=== PATIENT | male | born 1990 | race Caucasian/White ===

== ENCOUNTER 2017-12-14 15:09 | Inpatient (IN) | payer OTHER ==
[~2017-12-14] VITALS: Ht 172.7 cm; Wt 82.7 kg
[2017-12-14] MEDS: MORPHINE SULFATE 2 MG/ML INJ IV PUSH PRN ×5 (10:58→22:58)
[2017-12-14] MEDS: ACETAMINOPHEN 1000 MG/100 ML 100 ML IV SCH ×2 (11:00→17:11)
[2017-12-14] MEDS ORDERED: HYDROmorphone HCL PF 2 MG/ML VIAL ONE (15:17)
[2017-12-14 15:23] VITALS: O2SAT 100
[2017-12-14 15:34] LABS: BASOPHIL # 0.1 TH/MM3 (0-0.2); BASOPHIL % 0.4 % (0.0-2.0); EOSINOPHIL # 0.2 TH/MM3 (0-0.4); EOSINOPHIL % 1.2 % (0.0-4.0); HEMATOCRIT 43.2 % (39.0-51.0); HEMOGLOBIN 14.8 GM/DL (13.0-17.0); LYMPH % 27.9 % (9.0-44.0); LYMPHOCYTE # 5.5 TH/MM3 (1.0-4.8); MEAN CELL VOLUME 84.2 FL (80.0-100.0); MEAN CORPUSCULAR HEMOGLOBIN 28.8 PG (27.0-34.0); MEAN CORPUSCULAR HGB CONC 34.2 % (32.0-36.0); MEAN PLATELET VOLUME 8.5 FL (7.0-11.0); MONO % 4.8 % (0.0-8.0); NEUT % 65.7 % (16.0-70.0); PLATELET COUNT 306 TH/MM3 (150-450); RED BLOOD COUNT 5.12 MIL/MM3 (4.50-5.90); RED CELL DISTRIBUTION WIDTH 13.1 % (11.6-17.2); WHITE BLOOD COUNT 19.8 TH/MM3 (4.0-11.0)
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
[2017-12-14 15:45] LABS: PROTHROMBIN TIME - PATIENT 10.6 SEC (9.8-11.6)
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
[2017-12-14] MEDS ORDERED: IOHEXOL 350 MG/ML 10 ML VIAL (for RAD DIAG) IVCONTRAST ONE (15:47)
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
[2017-12-14] MEDS: SODIUM CHLOR 0.9% 1000 ML INJ 1,000 ML IV SCH (15:58)
[2017-12-14 16:00] VITALS: BP 143/65; PULSE 92; RESP 18; O2SAT 100
[2017-12-14] MEDS ORDERED: SODIUM CHLORIDE 0.9% FLUSH 10 ML FLUSH IV FLUSH PRN (16:00)
[2017-12-14] MEDS ORDERED: ONDANSETRON HCL 4 MG/2 ML VIAL IV PUSH PRN (16:00)
[2017-12-14] MEDS ORDERED: ENALAPRILAT 1.25 MG/ML VIAL IV PUSH PRN (16:00)
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
[2017-12-14 16:33] LABS: BANDS 2 % (0-6); LYMPHOCYTES 23 % (9-44); MONOCYTES 6 % (0-8); MYELOCYTES 1 % (0-0); NEUTROPHIL # MANUAL DIFF 13.7 TH/MM3 (1.8-7.7); POLYS (SEG NEUTROPHILS) 66 % (16-70)
[2017-12-14 16:45] VITALS: BP 123/76; PULSE 87; RESP 17; TEMP 95.3; O2SAT 96
[2017-12-14] MEDS ORDERED: BACITRACIN TOP OINT 15 GM TUBE ONE (18:00)
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
[2017-12-14] MEDS: FAMOTIDINE 20 MG TAB PO SCH (19:58)
[2017-12-14] MEDS: MAGNESIUM HYDROXIDE SUSP 30 ML CUP PO SCH (19:58)
[2017-12-14] MEDS: DOCUSATE SODIUM 100 MG CAP PO SCH (19:58)
[2017-12-14 20:00] VITALS: BP 125/64; PULSE 84; RESP 16; TEMP 95.7; O2SAT 98
[2017-12-15] MEDS: MORPHINE SULFATE 2 MG/ML INJ IV PUSH PRN ×5 (01:15→20:49)
[2017-12-15] MEDS: SODIUM CHLOR 0.9% 1000 ML INJ 1,000 ML IV SCH ×3 (01:58→20:53)
[2017-12-15 03:56] LABS: AUTOMATED NEUTROPHIL # 7.4 TH/MM3 (1.8-7.7); BASOPHIL % 0.2 % (0.0-2.0); EOSINOPHIL % 0.2 % (0.0-4.0); HEMATOCRIT 37.9 % (39.0-51.0); HEMOGLOBIN 13.4 GM/DL (13.0-17.0); LYMPH % 17.6 % (9.0-44.0); LYMPHOCYTE # 1.8 TH/MM3 (1.0-4.8); MEAN CELL VOLUME 84.2 FL (80.0-100.0); MEAN CORPUSCULAR HEMOGLOBIN 29.7 PG (27.0-34.0); MEAN CORPUSCULAR HGB CONC 35.3 % (32.0-36.0); MEAN PLATELET VOLUME 8.1 FL (7.0-11.0); MONO % 8.4 % (0.0-8.0); MONOCYTE # 0.8 TH/MM3 (0-0.9); NEUT % 73.6 % (16.0-70.0); PLATELET COUNT 218 TH/MM3 (150-450); RED CELL DISTRIBUTION WIDTH 12.8 % (11.6-17.2); WHITE BLOOD COUNT 10.1 TH/MM3 (4.0-11.0)
[2017-12-15 04:12] LABS: BICARBONATE 25.3 MEQ/L (21.0-32.0); CALCIUM 8.4 MG/DL (8.5-10.1); CREATININE 0.86 MG/DL (0.60-1.30)
[2017-12-15] MEDS ORDERED: LACTATED RINGER'S 1000 ML IV PRN (05:30)
[2017-12-15] MEDS ORDERED: SODIUM CHLORID 0.9% 500 ML IV PRN (05:30)
[2017-12-15] MEDS ORDERED: CHLORHEXIDINE GLUCONATE 2 % 1 PACK (2 CLOTHS) TOPICAL PRN (05:30)
[2017-12-15] MEDS ORDERED: METOPROLOL TARTRATE 25 MG TAB PO PRN (05:30)
[2017-12-15] MEDS ORDERED: POVIDONE IODINE 5% (ANTISEPSIS KIT) 4 APPLICATIONS EACH NARE PRN (05:30)
[2017-12-15] MEDS: ACETAMINOPHEN 1000 MG/100 ML 100 ML IV SCH ×2 (06:55→11:00)
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
[2017-12-15 08:00] VITALS: BP 128/92; PULSE 72; RESP 16; TEMP 97.3; O2SAT 100
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
[2017-12-15] MEDS ORDERED: GENTAMICIN SULFATE 80 MG/2 ML VIAL ONE ×2 (08:40→08:48)
[2017-12-15] MEDS ORDERED: VANCOMYCIN HCL 1000 MG VIAL ONE (08:40)
--- NOTE | 2017-12-15 08:50 | RADRPT ---
EXAM DATE/TIME: 12/15/2017 07:01 [facility] COMPARISON: CHEST SINGLE AP, December 14, 2017, 15:10. INDICATIONS : Shortness of breath. MEDICAL HISTORY : None. SURGICAL HISTORY : None. ENCOUNTER: Subsequent ACUITY: 1 day PAIN SCORE: 0/10 LOCATION: Bilateral chest FINDINGS: A single view of the chest demonstrates the lungs to be symmetrically aerated without evidence of mas s, infiltrate or effusion. The cardiomediastinal contours are unremarkable. Osseous structures are intact. CONCLUSION: Normal examination. Lavon Fitch Jr., MD on December 15, 2017 at 8:47 Board Certified Radiologist. This report was verified electronically.
[2017-12-15] MEDS ORDERED: fentaNYL CITRATE 250 MCG/5 ML AMP ONE (08:57)
[2017-12-15] MEDS: FAMOTIDINE 20 MG TAB PO SCH ×2 (09:00→20:53)
[2017-12-15] MEDS: DOCUSATE SODIUM 100 MG CAP PO SCH ×2 (09:00→20:53)
[2017-12-15] MEDS: MAGNESIUM HYDROXIDE SUSP 30 ML CUP PO SCH ×2 (09:00→20:53)
[2017-12-15] MEDS ORDERED: ceFAZolin INJ 1,000 MG VIAL IV ONE ×2 (10:03→12:00)
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
--- NOTE | 2017-12-15 11:06 | PD.OP ---
cc: Kedar Walters MD Operative Report Date of Surgery: Dec 15, 2017 Preoperative Diagnosis: Displaced right radius and ulna shaft fractures, distal radial ulnar joint dislocation Postoperative Diagnosis: Procedure: Open reduction internal fixation right radius, open reduction and fixation right ulna, open reduction of distal radial ulnar joint, pinning of right distal radial ulnar joint Surgeon: Kedar Walters Co Founder & Ceo(s): NATE Lund PA-C The surgical procedure was assisted by my physician emergency medicine physician assistant. My P.A. presence was necessary throughout this case for the manipulation and positioning of the surgical extremity. My P.A. was assisting me throughout the duration of this procedure. The skill set of a physician emergency medicine physician assistant was medically necessary to complete this procedure. During the surgical case the surgical scheduler was working at the back table and the physician emergency medicine physician assistant was directly assisting me. Operation and Findings: Patient was seen and examined preoperatively. Patient was found to have displaced right radius and ulna shaft fractures with dislocation of distal radial ulnar joint. Informed consent was obtained and operative site was marked. Patient was brought to operating room and given IV sedation and general anesthesia. Timeout procedure was performed. Operative extremity was prepped and draped with alcohol followed by Hibiclens and draped in usual sterile fashion. IV antibiotics were administered prior to incision. Procedure began with a 5 inch incision over the subcutaneous border of the ulna. Fascia was elevated off of the bone. Fracture site was visualized. Fracture tenaculums were used to reduce fracture. There was comminution of the fracture. Fracture was carefully reduced Fracture keyed into anatomic alignment. A Synthes plate was placed across the fracture. Plate was provisionally held to bone with K wires. 3.5 cortical screws were used to compress plate to bone. Multiple screws were placed in each side of fracture. K wires were removed. Fluoroscopy confirmed excellent alignment of fracture with well-placed hardware. Incision was now closed with #1 Vicryl, 3-0 Vicryl, and bao. Next attention was turned to the radius. A 5 inch incision was made over the volar aspect of the forearm. A standard volar approach was utilized. The interval between the radial artery and superficial radial nerve was identified. Neurovascular structures were protected. Soft tissue was elevated off the bone. Fracture site was visualized. Fracture fragments were carefully reduced. Each fracture fragment keyed in anatomic alignment. K wires were used to hold provisional fixation. A Synthes plate was contoured to fit the radius. Plate was provisionally held with K wires. 3.5 cortical screws were used to compress plate to bone. Multiple screws were placed in each side of fracture. K wires were removed. At this point the distal radial joint was visualized. The joint was still dislocated. Attempt was made at closed reduction. DRUJ was not reducible. A 3 inch incision was made over the dorsal aspect of the distal radioulnar joint. The distal ulna was visualized. Soft tissue was removed from the distal radial ulnar joint. Once soft tissue was removed the distal radial joint was reducible. The joint was visualized under fluoroscopy and was stable in supination but not in pronation. The wrist was now fully supinated. A Steinmann pin was now placed through the ulnar aspect of the ulna into the radius to stabilize the joint. Final fluoroscopy revealed excellent of fractures and distal radioulnar joint with well-placed hardware. Sterile dressings were applied with Xeroform, 4 x 4, soft roll, long arm splint, and Patel wrap. Patient was awakened and transferred to recovery room in stable condition. Forearm compartments were soft and compressible. Kedar Walters MD Dec 15, 2017 11:06
[2017-12-15] MEDS ORDERED: DO NOT ADM ANY ANTICOAGULANT DRUGS PRN (11:45)
[2017-12-15] MEDS ORDERED: LIDOCAINE HCL 1% PF 5 ML SYRINGE OTHER ONE (12:00)
[2017-12-15] MEDS ORDERED: LACTATED RINGER'S 1000 ML INJ 1,000 ML IV ONE (12:00)
[2017-12-15] MEDS ORDERED: ROCURONIUM INJ 50 MG/5 ML SYRINGE IV PUSH ONE (12:00)
[2017-12-15] MEDS ORDERED: PHENYLEPH/NS 1000 MCG/10 ML SYR IV ONE (12:00)
[2017-12-15] MEDS ORDERED: PROPOFOL 200 MG/20 ML AMP IV ONE (12:00)
[2017-12-15] MEDS ORDERED: ONDANSETRON HCL 4 MG/2 ML VIAL IV ONE (12:00)
[2017-12-15] MEDS ORDERED: DEXAMETHASONE SOD PHOS 4 MG/ML VIAL IV ONE (12:00)
[2017-12-15] MEDS ORDERED: ePHEDrine/NS 25 MG/5 ML SYRINGE IV ONE (12:00)
[2017-12-15] MEDS ORDERED: NEOSTIGMINE 5 MG/5 ML SYRINGE IV PUSH ONE (12:00)
[2017-12-15] MEDS ORDERED: KETOROLAC TROMETHAMINE 30 MG/ML (IVP) VIAL IV PUSH ONE (12:00)
[2017-12-15] MEDS ORDERED: GLYCOPYRROLATE 1 MG/5 ML SYRINGE IV PUSH ONE (12:00)
--- NOTE | 2017-12-15 12:53 | RADRPT ---
EXAM DATE/TIME: 12/15/2017 09:28 [facility] COMPARISON: FOREARM RIGHT (1VW), December 14, 2017, 15:10. INDICATIONS : Right forearm open reduction internal fixation. MEDICAL HISTORY : None. SURGICAL HISTORY : None. ENCOUNTER: Initial ACUITY: 1 day PAIN SCORE: Non-responsive. LOCATION: Right forearm FINDINGS: Plate and screw fixation of comminuted radial and ulnar fractures with pinning of the radioulnar join t. Hardware appears well-positioned and intact. There is grossly anatomic alignment. Redemonstration of comminuted proximal fifth metacarpal fracture and ulnar styloid fractures. Remainder of the exam i s unchanged. CONCLUSION: 1. Status post right forearm ORIF, as above. Conrad Quintanilla MD on December 15, 2017 at 12:44 Board Certified Radiologist. This report was verified electronically.
--- NOTE | 2017-12-15 13:02 | RADRPT ---
EXAM DATE/TIME: 12/15/2017 09:28 [facility] COMPARISON: No previous studies available for comparison. INDICATIONS : Left knee pain, evaluate for fracture under fluoro. MEDICAL HISTORY : None. SURGICAL HISTORY : None. ENCOUNTER: Initial ACUITY: 1 day PAIN SCORE: Non-responsive. LOCATION: Left knee FINDINGS: 2 AP spot fluoroscopic images of the left knee obtained in the operating room during a procedure demo nstrates a varus angulation of the knee joint with widening of the lateral knee joint compartment. No fracture is appreciated. CONCLUSION: Spot fluoroscopic images, as above. To Pittman MD on December 15, 2017 at 12:59 Board Certified Radiologist. This report was verified electronically.
[2017-12-15] MEDS: KETOROLAC TROMETHAMINE 30 MG/ML (IVP) VIAL IVP SCH ×2 (13:07→22:30)
[2017-12-15 15:55] VITALS: O2SAT 99
[2017-12-15 16:00] VITALS: BP 158/69; PULSE 70; RESP 18; TEMP 97.8; O2SAT 98
[2017-12-15] MEDS: LACTATED RINGER'S 1000 ML INJ 1,000 ML IV SCH ×2 (16:23→20:54)
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
[2017-12-15 20:00] VITALS: BP 134/62; PULSE 73; RESP 20; TEMP 97.6; O2SAT 97
[2017-12-15] MEDS: VANCOMYCIN INJ 1,000 MG in SODIUM CHLOR 0.9% 250 ML INJ 250 ML IV SCH (20:46)
[2017-12-15] MEDS: ENOXAPARIN SODIUM 30 MG/0.3 ML SYRINGE SQ SCH (22:30)
[2017-12-16] MEDS: ceFAZolin 2 GM PREMIX 50 ML IV SCH ×3 (02:30→17:28)
[2017-12-16 04:00] LABS: HEMATOCRIT 28.3 % (39.0-51.0); HEMOGLOBIN 10.1 GM/DL (13.0-17.0)
[2017-12-16] MEDS: KETOROLAC TROMETHAMINE 30 MG/ML (IVP) VIAL IVP SCH ×2 (06:15→14:55)
--- NOTE | 2017-12-16 07:53 | PD.ORT.PN ---
Subjective Subjective Remarks less complaints about right arm Objective Vitals Vital Signs Date Time Temp Pulse Resp B/P (MAP) Pulse Ox O2 Delivery O2 Flow Rate FiO2 12/15/17 20:00 97.6 73 20 134/62 (86) 97 12/15/17 16:00 97.8 70 18 158/69 (98) 98 12/15/17 15:55 99 21 12/15/17 12:30 98.3 80 14 155/75 (101) 99 Room Air 12/15/17 12:15 84 14 146/73 (97) 98 Room Air 12/15/17 12:00 68 14 140/73 (95) 98 Room Air 12/15/17 11:50 98.3 76 14 135/71 (92) 98 Room Air 12/15/17 08:00 97.3 72 16 128/92 (104) 100 I/O 12/15/17 12/15/17 12/15/17 12/16/17 12/16/17 12/16/17 07:00 15:00 23:00 07:00 15:00 23:00 Intake Total 240 ml 1400 ml 451 ml 680 ml Output Total 400 ml 400 ml 600 ml Balance -160 ml 1000 ml 451 ml 80 ml Intake Oral 240 ml 680 ml IV Total 451 ml Other 1400 ml Output Urine Total 400 ml 300 ml 600 ml Estimated Blood Loss 100 ml # Voids 1 # Bowel Movements 0 Result Diagram: 12/16/17 0336 12/15/17 0337 Imaging Last 24 hours Impressions Pelvis X-Ray 12/14/171520 Signed Impressions: Service Date/Time: December 15:10 - CONCLUSION: Fractures of both superior and inferior pubic rami. Pollo Almodovar MD Head CT 12/14/17 152 Signed Impressions: Service Date/Time: December 15:25 - CONCLUSION: 1. No acute hemorrhage or mass effect. 2. Benign subcutaneous calcifications. Pollo Almodovar MD Chest X-Ray 12/14/171520 Signed Impressions: Service Date/Time: December 15:10 - CONCLUSION: Limited study demonstrating no acute cardiopulmonary disease. Pollo Almodovar MD Chest CT 12/14/17 152 Signed Impressions: Service Date/Time: December 15:32 - CONCLUSION: 1. Patchy alveolar infiltrate in the right middle lobe which could represent lung contusion or aspiration. 2. No pneumothorax or visceral injury. Pollo Almodovar MD Cervical Spine CT 12/14/17 1521 Signed Impressions: Service Date/Time: December 15:27 - CONCLUSION: 1. No fracture or subluxation 2. Borderline prominent lymph node just posterior to the left sternocleidomastoid musculature in the left. Bean Merino MD Abdomen/Pelvis CT 12/14/17 1521 Signed Impressions: Service Date/Time: December 15:32 - CONCLUSION: 1. Bilateral comminuted fractures of the superior and inferior pubic rami with displaced fragments from the left superior pubic rami with mild mass effect on the bladder. 2. No evidence of visceral injury. Pollo Almodovar MD Objective Remarks Right upper extremity: Sugar tong splint in place, moves fingers well, normal sensation Left leg in CKS Assessment & Plan Assessment and Plan POD #1 s/p R forearm ORIF Left knee possible ligament injury Right and left inferior superior pubic rami fractures 1) stable following ORIF of R UE - NWB 2) MRI pending (done but not read) for L knee to eval for poss ligament injury ( NWB) 3) WBAT Clive Boswell MD Dec 16, 2017 07:53
[2017-12-16] MEDS: SODIUM CHLOR 0.9% 1000 ML INJ 1,000 ML IV SCH ×2 (07:58→17:58)
[2017-12-16 08:00] VITALS: BP 138/80; PULSE 77; RESP 18; TEMP 97; O2SAT 100
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
[2017-12-16] MEDS: DOCUSATE SODIUM 100 MG CAP PO SCH ×2 (09:50→21:33)
[2017-12-16] MEDS: FAMOTIDINE 20 MG TAB PO SCH ×2 (09:50→21:33)
[2017-12-16] MEDS: MAGNESIUM HYDROXIDE SUSP 30 ML CUP PO SCH ×2 (10:13→21:33)
[2017-12-16] MEDS: VANCOMYCIN INJ 1,000 MG in SODIUM CHLOR 0.9% 250 ML INJ 250 ML IV SCH (10:13)
[2017-12-16] MEDS: LACTATED RINGER'S 1000 ML INJ 1,000 ML IV SCH ×2 (10:14→18:00)
[2017-12-16] MEDS ORDERED: DOCU1CAP39 PO (11:06)
[2017-12-16] MEDS ORDERED: MAGN30S PO (11:06)
[2017-12-16] MEDS: MORPHINE SULFATE 2 MG/ML INJ IV PUSH PRN ×3 (11:53→23:10)
[2017-12-16] MEDS: ENOXAPARIN SODIUM 30 MG/0.3 ML SYRINGE SQ SCH ×2 (11:57→23:06)
--- NOTE | 2017-12-16 14:32 | RADRPT ---
EXAM DATE/TIME: 12/15/2017 16:40 [place] COMPARISON: No previous studies available for comparison. INDICATIONS : Internal derangement. MEDICAL HISTORY : None. SURGICAL HISTORY : Tonsillectomy. ENCOUNTER: Initial ACUITY: 1 day PAIN SCORE: 5/10 LOCATION: Left knee TECHNIQUE: Multiplanar, multisequence MRI examination was performed without contrast. FINDINGS: CRUCIATE LIGAMENTS: ACL is completely torn. There is laxity of the PCL which appears intact. MENISCI: Medial meniscus is intact. There is a minimal tearing along the inferior surface of the anterior horn of the lateral meniscus.. COLLATERAL LIGAMENTS: MCL and LCL are torn. BONE/CARTILAGE: Extensive bone contusions along the medial femoral condyle medially and distally. There is also contu sions along the medial tibial plateau MISCELLANEOUS: There is a joint effusion. Extensor mechanism is intact. CONCLUSION: 1. Complete tear of the anterior cruciate ligament. 2. Extensive bone bruising medial femoral condyle and medial tibial plateau. 3. Joint effusion and extensive soft tissue injury. 4. Tears of the medial lateral collateral ligaments. 5. Undersurface tear along the anterior horn the lateral meniscus. Bean Merino MD on December 16, 2017 at 14:23 Board Certified Radiologist. This report was verified electronically.
[2017-12-16 20:00] VITALS: BP 119/55; PULSE 79; RESP 18; TEMP 97.3; O2SAT 99
[2017-12-16 23:58] VITALS: BP 126/56; PULSE 83; RESP 16; TEMP 98.5; O2SAT 98
[2017-12-17] MEDS: ceFAZolin 2 GM PREMIX 50 ML IV SCH ×2 (02:20→10:16)
[2017-12-17] MEDS: MORPHINE SULFATE 2 MG/ML INJ IV PUSH PRN ×4 (05:49→22:29)
[2017-12-17 08:00] VITALS: BP 123/68; PULSE 78; RESP 18; TEMP 98.2; O2SAT 97
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
[2017-12-17] MEDS: DOCUSATE SODIUM 100 MG CAP PO SCH ×2 (09:05→20:59)
[2017-12-17] MEDS: LACTULOSE SYRUP 20 GM/30 ML CUP PO SCH (09:05)
[2017-12-17] MEDS: FAMOTIDINE 20 MG TAB PO SCH ×2 (09:05→20:59)
[2017-12-17] MEDS: MAGNESIUM HYDROXIDE SUSP 30 ML CUP PO SCH ×2 (09:05→20:59)
[2017-12-17 10:11] VITALS: O2SAT 97
--- NOTE | 2017-12-17 10:11 | PD.ORT.PN ---
Subjective Post Op Day #: 2 Subjective Remarks Patient resting in bed with family at bedside. Patient had increased numbness to 3rd, 4th, and 5th finger this morning. Dressing was loosened and patient reports numbness has improved. Patient c/o left knee pain. Patient reports not being able to dorsiflex his foot since his injury. Objective Vitals Vital Signs Date Time Temp Pulse Resp B/P (MAP) Pulse Ox O2 Delivery O2 Flow Rate FiO2 12/17/17 08:00 98.2 78 18 123/68 (86) 97 12/16/17 23:58 98.5 83 16 126/56 (79) 98 12/16/17 20:00 97.3 79 18 119/55 (76) 99 I/O 12/16/17 12/16/17 12/16/17 12/17/17 12/17/17 12/17/17 07:00 15:00 23:00 07:00 15:00 23:00 Intake Total 680 ml 780 ml 480 ml Output Total 600 ml 500 ml Balance 80 ml 780 ml -20 ml Intake Oral 680 ml 480 ml 480 ml IV Total 300 ml Output Urine Total 600 ml 500 ml # Voids 5 # Bowel Movements 0 Result Diagram: 12/16/17 0336 12/15/17 0337 Imaging Last 24 hours Impressions Pelvis X-Ray 12/14/17 152 Signed Impressions: Service Date/Time: December 15:10 - CONCLUSION: Fractures of both superior and inferior pubic rami. Pollo Almodovar MD Head CT 12/14/17 152 Signed Impressions: Service Date/Time: December 15:25 - CONCLUSION: 1. No acute hemorrhage or mass effect. 2. Benign subcutaneous calcifications. Pollo Almodovar MD Chest X-Ray 12/14/17 1521 Signed Impressions: Service Date/Time: December 15:10 - CONCLUSION: Limited study demonstrating no acute cardiopulmonary disease. Pollo Almodovar MD Chest CT 12/14/17 1521 Signed Impressions: Service Date/Time: December 15:32 - CONCLUSION: 1. Patchy alveolar infiltrate in the right middle lobe which could represent lung contusion or aspiration. 2. No pneumothorax or visceral injury. Pollo Almodovar MD Cervical Spine CT 12/14/17 1521 Signed Impressions: Service Date/Time: December 15:27 - CONCLUSION: 1. No fracture or subluxation 2. Borderline prominent lymph node just posterior to the left sternocleidomastoid musculature in the left. Bean Merino MD Abdomen/Pelvis CT 12/14/17 1521 Signed Impressions: Service Date/Time: December 15:32 - CONCLUSION: 1. Bilateral comminuted fractures of the superior and inferior pubic rami with displaced fragments from the left superior pubic rami with mild mass effect on the bladder. 2. No evidence of visceral injury. Pollo Almodovar MD Objective Remarks Right upper extremity: Sugar tong splint in place, moves fingers well, normal sensation Left leg in CKS. Left knee + instability. + drop foot on left. Strong pulses and warmth to the left foot. Good sensation to light touch. Assessment & Plan Ortho Post Op Day #: 2 Problem List: Assessment and Plan POD #2 s/p R forearm ORIF Left knee ACL tear with medial and lateral collateral ligament tears Left drop foot Right and left inferior superior pubic rami fractures 1) stable following ORIF of R UE - NWB 2) MRI of LLE shows complete ACL tear and medial and lateral collateral ligament tears. Patient will need to remain NWB on the LLE. Will need referral to one of our sports medicine partners to address. 3) WBAT R LE 4. Increased numbness to hand improved with dressing change. 5. Left drop foot: AFO ordered. 6. Dr. Foster and team to see on Monday. Omari Brown Dec 17, 2017 10:11
[2017-12-17] MEDS: ENOXAPARIN SODIUM 30 MG/0.3 ML SYRINGE SQ SCH ×2 (10:55→22:28)
[2017-12-17 12:00] VITALS: BP 133/70; PULSE 80; RESP 16; TEMP 97.2; O2SAT 97
[2017-12-17 16:00] VITALS: BP 132/72; PULSE 79; RESP 18; TEMP 97.6; O2SAT 99
[2017-12-17 17:36] VITALS: O2SAT 97
[2017-12-17 20:15] VITALS: BP 132/73; PULSE 80; RESP 17; TEMP 98.3; O2SAT 98
[2017-12-18 00:15] VITALS: BP 124/72; PULSE 79; RESP 16; TEMP 97; O2SAT 98
[2017-12-18] MEDS: MORPHINE SULFATE 2 MG/ML INJ IV PUSH PRN ×5 (03:44→20:35)
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
[2017-12-18 07:37] VITALS: BP 130/68; PULSE 72; RESP 18; TEMP 97.1; O2SAT 99
[2017-12-18] MEDS ORDERED: BISACODYL EC 5 MG TABEC PO ONE (07:45)
[2017-12-18] MEDS ORDERED: BISACODYL 10 MG SUPP RECTAL ONE (07:45)
[2017-12-18] MEDS: FAMOTIDINE 20 MG TAB PO SCH ×2 (08:42→20:34)
[2017-12-18] MEDS: MAGNESIUM HYDROXIDE SUSP 30 ML CUP PO SCH ×2 (08:42→20:34)
[2017-12-18] MEDS: LACTULOSE SYRUP 20 GM/30 ML CUP PO SCH (08:42)
[2017-12-18] MEDS: DOCUSATE SODIUM 100 MG CAP PO SCH ×2 (08:43→20:34)
[2017-12-18] MEDS: SODIUM CHLOR 0.9% 1000 ML INJ 1,000 ML IV SCH (09:58)
[2017-12-18] MEDS: LACTATED RINGER'S 1000 ML INJ 1,000 ML IV SCH (10:00)
[2017-12-18] MEDS: ENOXAPARIN SODIUM 30 MG/0.3 ML SYRINGE SQ SCH (11:17)
[2017-12-18 11:20] VITALS: BP 127/79; PULSE 71; RESP 18; TEMP 96.5; O2SAT 100
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
[2017-12-18] MEDS: GABAPENTIN 300 MG CAP PO SCH ×2 (12:28→18:32)
[2017-12-18] MEDS: ACETAMINOPHEN 1000 MG/100 ML 100 ML IV SCH ×2 (12:28→18:32)
[2017-12-18 15:21] VITALS: BP 126/78; PULSE 89; RESP 18; TEMP 96.3; O2SAT 98
[2017-12-18 20:30] VITALS: BP_SYST 112; BP_SYST 130; BP_DIAS 69; BP_DIAS 75; PULSE 107; PULSE 91; RESP 17; RESP 18; TEMP 96.6; TEMP 98; O2SAT 93; O2SAT 98
[2017-12-19] VITALS (8 sets, daily range): BP systolic 126–137; BP diastolic 65–78; PULSE 69–100; RESP 17–20; TEMP 96.1–97.9; O2SAT 94–99
[2017-12-19] MEDS: ACETAMINOPHEN 1000 MG/100 ML 100 ML IV SCH ×2 (00:32→06:24)
[2017-12-19] MEDS: ENOXAPARIN SODIUM 30 MG/0.3 ML SYRINGE SQ SCH ×3 (00:32→22:06)
[2017-12-19] MEDS: MORPHINE SULFATE 2 MG/ML INJ IV PUSH PRN ×4 (00:33→20:15)
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
[2017-12-19] MEDS ORDERED: XARE10TA PO (06:32)
[2017-12-19] MEDS ORDERED: ENDO10TA8 PO (06:32)
--- NOTE | 2017-12-19 06:35 | HHI.FF ---
Face to Face Verification Diagnosis: (1) Forearm fracture (2) Bilateral pubic rami fractures (3) Complex tear of meniscus of left knee Physical Therapy Gait training Knee: Other, Protocol: Left, Non weight bearing Canvas Knee Splint: At all times Right LE Weight Bearing: WB as tolerated Occupational Therapy Right UE Weight Bearing: Non WB Left UE Weight Bearing: WB as tolerated Nursing Dressing Changes: Do not change dressing (of right arm. maintain splint at all times), Daily dressing change (left knee with xeroform/4x4/CRUZ) I have seen patient Singh Oliveros on 12/19/17. My clinical findings support the need for the requested home health care services because: Ltd mobility - disease progression I certify that my clinical findings support that this patient is homebound because: Post-op weakness Cristian Wilson/First Ying REINOSO Dec 19, 2017 06:35
[2017-12-19] MEDS: KETOROLAC TROMETHAMINE 60 MG/2 ML (IM) VIAL IM SCH ×3 (07:35→20:16)
[2017-12-19] MEDS ORDERED: BISACODYL EC 5 MG TABEC PO ONE (07:45)
[2017-12-19] MEDS ORDERED: BISACODYL 10 MG SUPP RECTAL ONE (07:45)
[2017-12-19] MEDS: FAMOTIDINE 20 MG TAB PO SCH ×2 (08:24→20:12)
[2017-12-19] MEDS: GABAPENTIN 300 MG CAP PO SCH ×3 (08:24→17:32)
[2017-12-19] MEDS: MAGNESIUM HYDROXIDE SUSP 30 ML CUP PO SCH ×2 (09:00→20:13)
[2017-12-19] MEDS: LACTULOSE SYRUP 20 GM/30 ML CUP PO SCH (09:00)
[2017-12-19] MEDS: DOCUSATE SODIUM 100 MG CAP PO SCH ×2 (11:11→20:12)
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
[2017-12-20 00:50] VITALS: BP 138/65; PULSE 99; RESP 16; TEMP 97.7; O2SAT 98
[2017-12-20 04:24] VITALS: O2SAT 97
[2017-12-20] MEDS ORDERED: MORPHINE SULFATE 2 MG/ML INJ IV PRN (05:30)
[2017-12-20 06:21] LABS: AUTOMATED NEUTROPHIL # 6.7 TH/MM3 (1.8-7.7); BASOPHIL # 0.1 TH/MM3 (0-0.2); BASOPHIL % 0.7 % (0.0-2.0); EOSINOPHIL # 0.4 TH/MM3 (0-0.4); EOSINOPHIL % 3.6 % (0.0-4.0); HEMATOCRIT 31.3 % (39.0-51.0); HEMOGLOBIN 11.3 GM/DL (13.0-17.0); LYMPH % 22.7 % (9.0-44.0); LYMPHOCYTE # 2.4 TH/MM3 (1.0-4.8); MEAN CELL VOLUME 83.1 FL (80.0-100.0); MEAN CORPUSCULAR HEMOGLOBIN 29.9 PG (27.0-34.0); MEAN PLATELET VOLUME 8.2 FL (7.0-11.0); MONO % 9.4 % (0.0-8.0); NEUT % 63.6 % (16.0-70.0); PLATELET COUNT 288 TH/MM3 (150-450); RED BLOOD COUNT 3.77 MIL/MM3 (4.50-5.90); RED CELL DISTRIBUTION WIDTH 12.8 % (11.6-17.2); WHITE BLOOD COUNT 10.5 TH/MM3 (4.0-11.0)
[2017-12-20 06:49] LABS: BICARBONATE 29.9 MEQ/L (21.0-32.0); CALCIUM 8.9 MG/DL (8.5-10.1); CREATININE 0.79 MG/DL (0.60-1.30)
[2017-12-20 08:00] VITALS: BP 117/68; PULSE 87; RESP 17; TEMP 98.5; O2SAT 98
[2017-12-20] MEDS ORDERED: fentaNYL 50 MCG/HR PATCH T-DERMAL SCH (08:00)
[2017-12-20 08:34] LABS: BANDS 2 % (0-6); LYMPHOCYTES 29 % (9-44); MONOCYTES 2 % (0-8); MYELOCYTES 3 % (0-0); NEUTROPHIL # MANUAL DIFF 6.8 TH/MM3 (1.8-7.7); POLYS (SEG NEUTROPHILS) 60 % (16-70)
[2017-12-20] MEDS: DOCUSATE SODIUM 100 MG CAP PO SCH (08:37)
[2017-12-20] MEDS: FAMOTIDINE 20 MG TAB PO SCH (08:37)
[2017-12-20] MEDS: GABAPENTIN 300 MG CAP PO SCH ×2 (08:37→13:23)
[2017-12-20] MEDS: IBUPROFEN 800 MG TAB PO SCH ×2 (08:37→13:22)
[2017-12-20] MEDS: MAGNESIUM HYDROXIDE SUSP 30 ML CUP PO SCH (09:00)
[2017-12-20] MEDS: LACTULOSE SYRUP 20 GM/30 ML CUP PO SCH (09:00)
[2017-12-20] MEDS ORDERED: OXYC-392 PO (11:38)
[2017-12-20] MEDS ORDERED: OXYC-395 PO (11:38)
[2017-12-20] MEDS ORDERED: IBUP1TAB7 PO (11:38)
[2017-12-20] MEDS ORDERED: ENOX30P SQ (11:38)
[2017-12-20] MEDS ORDERED: FENT50T T-DERMAL (11:38)
[2017-12-20] MEDS ORDERED: NEUR300C PO (11:38)
[2017-12-20 11:41] VITALS: BP 118/70; PULSE 77; RESP 18; TEMP 96.8; O2SAT 99
[2017-12-20] MEDS: ENOXAPARIN SODIUM 30 MG/0.3 ML SYRINGE SQ SCH (13:24)
[2017-12-20 14:23] VITALS: RESP 2
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
[2017-12-23] MEDS ORDERED: REMOVE OLD DURAGESIC (FENTANYL) PATCH T-DERMAL SCH (08:00)
== END 2017-12-20 17:19 | DRG 959 ==
LOC: NEPI 15:09 → NEDA 15:43 → EDBD 15:43 → N06A 16:33
PROVIDERS: ADMIT Surgery; ATTEND Surgery
PROC: 0PSK04Z Reposition Right Ulna with Internal Fixation Device, Open Approach (ICD-10-PCS; 2017-12-15)
PROC: 0RSN04Z Reposition Right Wrist Joint with Internal Fixation Device, Open Approach (ICD-10-PCS; 2017-12-15)
PROC: 0PSH04Z Reposition Right Radius with Internal Fixation Device, Open Approach (ICD-10-PCS; principal; 2017-12-15 08:58)
DX: S52.391A Other fracture of shaft of radius, right arm, initial encounter for closed fracture (principal); S32.591A Other specified fracture of right pubis, initial encounter for closed fracture; S27.321A Contusion of lung, unilateral, initial encounter; S32.592A Other specified fracture of left pubis, initial encounter for closed fracture; S52.291A Other fracture of shaft of right ulna, initial encounter for closed fracture; V23.4XXA Motorcycle driver injured in collision with car, pick-up truck or van in traffic accident, initial encounter; Y93.89 Activity, other specified; S63.004A Unspecified dislocation of right wrist and hand, initial encounter; S81.812A Laceration without foreign body, left lower leg, initial encounter; S00.83XA Contusion of other part of head, initial encounter; S62.346A Nondisplaced fracture of base of fifth metacarpal bone, right hand, initial encounter for closed fracture; S83.207A Unspecified tear of unspecified meniscus, current injury, left knee, initial encounter; S83.412A Sprain of medial collateral ligament of left knee, initial encounter; S83.422A Sprain of lateral collateral ligament of left knee, initial encounter; M21.372 Foot drop, left foot; S83.512A Sprain of anterior cruciate ligament of left knee, initial encounter; Y92.410 Unspecified street and highway as the place of occurrence of the external cause; R20.0 Anesthesia of skin; M25.462 Effusion, left knee
CPT/HCPCS: 29125; 70450; 71045; 71260; 72125; 72170; 73090; 73130; 73551; 73560; 73721; 74177; 76000; 80048; 85007; 85014; 85018; 85025; 85027; 85610; 85730; 86850; 86900; 86901; 94150; 96374; 99291; C1713; G0390; J0131; J0690; J1100; J1170; J1580; J1650; J1885; J2270; J2370; J2405; J2710; J3010; J3370; J7030; J7050; J7120; L1960; Q9967